=== PATIENT | female | born 1980 | race American Indian/Alaskan Native ===

== ENCOUNTER 2019-01-30 21:35 | Emergency (ER) | payer MEDICAID, OTHER ==
[2019-01-30 22:15] VITALS: BP 117/74
--- NOTE | 2019-01-30 22:16 | Emergency Department Report ---
Blank Doc - Documentation Documentation: pt presents with suprapubic pain that began today also has lower back pain no n/V +dark urine, frequency no fever PMHx herpes LNMP: hasnt had in two years due to normal BM today non smoker non drinker no drug use
[2019-01-30 23:15] LABS: Bilirubin,Urine NEG (Negative); Blood,Urine NEG (Negative); Color,Urine Yellow (Yellow); Mucus,Urine FEW /HPF; Protein,Urine <15 mg/dL mg/dL (Negative); Urobilinogen,Urine < 2.0 mg/dL (<2.0)
[2019-01-30 23:24] LABS: HCG Qualitative,Urine Negative (Negative)
[2019-01-31] MEDS ORDERED: TYLENOL PO ONE (03:19)
[2019-01-31] MEDS ORDERED: DELTASONE PO ONE (03:19)
[2019-01-31] MEDS ORDERED: IBUPROFEN PO ONE (03:19)
--- NOTE | 2019-01-31 03:31 | Emergency Department Report ---
ED Back Pain/Injury HPI - General Chief Complaint: Back Pain/Injury Stated Complaint: BACK/PELVIC PAIN Time Seen by Provider: 01/30/19 22:13 Source: patient Limitations: No Limitations - History of Present Illness Initial Comments: The patient is a 38-year-old female with no past medical history who presents to the ED with complaint of persistent nontraumatic low back pain for the last 2 days. Patient states that she woke up with low back pain and the patient has been persistent, especially worse with any movement or when she lays down and starts to walk. Patient denies dysuria, urinary frequency and urgency, fever, chills, nausea, vomiting, abdominal pain, dizziness, headache, history of lifting, traumatic injury, fall, numbness and tingling or weakness of lower extremities bilaterally, saddle paresthesia, urinary or bowel incontinence. MD Complaint: back pain -: Sudden, days(s) (2) Similar Symptoms Previously: Yes Place: home Radiation: none Severity: severe Severity scale (0 -10): 7 Quality: sharp, aching Consistency: constant Improves With: none Worsens With: movement, walking Context: turning/twisting, bending Associated Symptoms: denies other symptoms, difficulty walking. denies: confusion, weakness, numbness, cough, difficulty urinating, diaphoresis, incontinence, constipation, abdominal pain, loss of appetite, nausea/vomiting, rash, syncope, other - Related Data Previous Rx's Medication Instructions Recorded Last Taken Type Ibuprofen [Motrin 800 MG tab] 800 mg PO TID PRN #30 tablet 03/01/18 Unknown Rx Lidocain2.5%/Prilocai2.5% [Emla] 5 gm TP ONCE #1 tube 03/01/18 Unknown Rx oxyCODONE /ACETAMINOPHEN [Percocet 1 - 2 tab PO Q4HR PRN #30 tablet 03/01/18 Unknown Rx 5/325 mg] Docusate Sodium [Colace] 100 mg PO DAILY #30 capsule 03/02/18 Unknown Rx Ferrous Sulfate [Feosol 325 MG tab] 325 mg PO BID #90 tablet 03/02/18 Unknown Rx Acetaminophen/Codeine [Tylenol 1 tab PO Q6H PRN #12 tab 01/31/19 Unknown Rx /Codeine # 3 tab] Cyclobenzaprine [Flexeril] 10 mg PO Q8H PRN #18 tablet 01/31/19 Unknown Rx Naproxen [Naprosyn] 500 mg PO Q12H PRN #20 tablet 01/31/19 Unknown Rx predniSONE [Deltasone] 60 mg PO QDAY #15 tab 01/31/19 Unknown Rx Allergies Allergy/AdvReac Type Severity Reaction Status Date / Time No Known Allergies Allergy Unverified 03/01/18 05:44 ED Review of Systems ROS: Stated complaint: BACK/PELVIC PAIN Other details as noted in HPI Comment: All other systems reviewed and negative Constitutional: see HPI. denies: chills, fever Eyes: denies: eye pain, eye discharge, vision change ENT: as per HPI. denies: ear pain, throat pain Respiratory: see HPI. denies: cough, shortness of breath, wheezing Cardiovascular: as per HPI. denies: chest pain, palpitations Endocrine: no symptoms reported. denies: excessive sweating, intolerance to cold Gastrointestinal: as per HPI. denies: abdominal pain, nausea, diarrhea Genitourinary: as per HPI. denies: urgency, dysuria, discharge Musculoskeletal: back pain (lower back pain), arthralgia. denies: joint swelling Skin: as per HPI. denies: rash, lesions Neurological: as per HPI. denies: headache, weakness, numbness, paresthesias, confusion, abnormal gait, vertigo Psychiatric: as per HPI. denies: anxiety, depression Hematological/Lymphatic: as per HPI. denies: easy bleeding, easy bruising ED Past Medical Hx - Past Medical History Hx Hypertension: No Hx Diabetes: No Hx Deep Vein Thrombosis: No Hx Renal Disease: No Hx Sickle Cell Disease: Yes (SS trait) Hx Seizures: No Hx Asthma: No Hx HIV: No - Surgical History Past Surgical History?: No - Social History Smoking Status: Former Smoker Substance Use Type: Marijuana - Medications Home Medications: Home Medications Medication Instructions Recorded Confirmed Last Taken Type Ibuprofen [Motrin 800 MG tab] 800 mg PO TID PRN #30 tablet 03/01/18 Unknown Rx Lidocain2.5%/Prilocai2.5% [Emla] 5 gm TP ONCE #1 tube 03/01/18 Unknown Rx oxyCODONE /ACETAMINOPHEN [Percocet 1 - 2 tab PO Q4HR PRN #30 tablet 03/01/18 Unknown Rx 5/325 mg] Docusate Sodium [Colace] 100 mg PO DAILY #30 capsule 03/02/18 Unknown Rx Ferrous Sulfate [Feosol 325 MG tab] 325 mg PO BID #90 tablet 03/02/18 Unknown Rx Acetaminophen/Codeine [Tylenol 1 tab PO Q6H PRN #12 tab 01/31/19 Unknown Rx /Codeine # 3 tab] Cyclobenzaprine [Flexeril] 10 mg PO Q8H PRN #18 tablet 01/31/19 Unknown Rx Naproxen [Naprosyn] 500 mg PO Q12H PRN #20 tablet 01/31/19 Unknown Rx predniSONE [Deltasone] 60 mg PO QDAY #15 tab 01/31/19 Unknown Rx ED Physical Exam - General Limitations: No Limitations General appearance: alert, in no apparent distress - Head Head exam: Present: atraumatic, normocephalic, normal inspection - Eye Eye exam: Present: normal appearance, PERRL, EOMI. Absent: scleral icterus, conjunctival injection, nystagmus Pupils: Present: normal accommodation - ENT ENT exam: Present: normal exam, mucous membranes moist, TM's normal bilaterally, normal external ear exam - Neck Neck exam: Present: normal inspection, full ROM. Absent: tenderness, lymphadenopathy, thyromegaly - Respiratory Respiratory exam: Present: normal lung sounds bilaterally. Absent: respiratory distress, wheezes, rales, rhonchi, chest wall tenderness, accessory muscle use, decreased breath sounds, prolonged expiratory - Cardiovascular Cardiovascular Exam: Present: regular rate, normal rhythm, normal heart sounds. Absent: systolic murmur, diastolic murmur, rubs, gallop - GI/Abdominal GI/Abdominal exam: Present: soft, normal bowel sounds, organomegaly. Absent: hyperactive bowel sounds, hypoactive bowel sounds - Rectal Rectal exam: Present: deferred - Extremities Exam Extremities exam: Present: normal inspection, full ROM, normal capillary refill - Back Exam Back exam: Present: normal inspection, tenderness (palpable lumbosacral paraspinal muscular skeletal tenderness), muscle spasm, paraspinal tenderness. Absent: CVA tenderness (R), CVA tenderness (L), vertebral tenderness - Neurological Exam Neurological exam: Present: alert, oriented X3, CN II-XII intact, normal gait - Psychiatric Psychiatric exam: Present: normal affect, normal mood - Skin Skin exam: Present: warm, dry, intact, normal color. Absent: rash ED Course Vital Signs 01/30/19 22:14 Temperature 97.5 F L Pulse Rate 72 Respiratory 18 Rate Blood Pressure 117/74 [Right] O2 Sat by Pulse 100 Oximetry - Reevaluation(s) Reevaluation #1: 01/31/19 03:34 Patient is alert and oriented 3 and not in distress, with normal vital signs. Urinalysis unremarkable. Patient was treated for pain in the ED. Patient was discharged home on pain medications and muscle relaxants and advised to follow up with her primary care physician in 5-7 days for reevaluation or return to the ED immediately if symptoms get worse. ED Medical Decision Making - Medical Decision Making Patient is alert and oriented 3 and not in distress, with normal vital signs. Urinalysis unremarkable. Patient was treated for pain in the ED. patient's symptoms are likely due to muscle spasm of lower back. Patient was discharged home on pain medications and muscle relaxants and advised to follow up with her primary care physician in 5-7 days for reevaluation or return to the ED immediately if symptoms get worse. - Differential Diagnosis acute lower back pain; Muscle spasm of lower back, acute UTI Critical care attestation.: If time is entered above; I have spent that time in minutes in the direct care of this critically ill patient, excluding procedure time. ED Disposition Clinical Impression: Spasm of muscle of lower back Acute low back pain Qualifiers: Back pain laterality: unspecified Sciatica presence: without sciatica Qualified Code(s): M54.5 - Low back pain Disposition: DC-01 TO HOME OR SELFCARE Is pt being admited?: No Does the pt Need Aspirin: No Condition: Stable Instructions: Muscle Spasm (ED), Acute Low Back Pain (ED) Additional Instructions: Take medications with food, drink plenty of fluids and follow-up with your primary care physician in 7-10 days for reevaluation. Return to the ED immediately if symptoms get worse. Prescriptions: predniSONE [Deltasone] 60 mg PO QDAY #15 tab Cyclobenzaprine [Flexeril] 10 mg PO Q8H PRN #18 tablet PRN Reason: Muscle Spasm Naproxen [Naprosyn] 500 mg PO Q12H PRN #20 tablet PRN Reason: Pain , Severe (7-10) Acetaminophen/Codeine [Tylenol /Codeine # 3 tab] 1 tab PO Q6H PRN #12 tab PRN Reason: Pain , Severe (7-10) Referrals: SUE MYERS MD [Primary Care Provider] - 3-5 Days Time of Disposition: 03:31 Print Language: SPANISH
== END 2019-01-31 03:55 | disposition home or self-care (01) ==
LOC: ED 21:35
DX: M62.830 Muscle spasm of back (principal); F12.10 Cannabis abuse, uncomplicated; Z87.891 Personal history of nicotine dependence; D57.3 Sickle-cell trait; Z79.899 Other long term (current) drug therapy
CPT/HCPCS: 81001; 81025; 99283; J7512

== ENCOUNTER 2019-04-06 18:58 | Emergency (ER) | payer OTHER ==
--- NOTE | 2019-04-06 19:36 | Event Note ---
ED Screening Note Date of service: 04/06/19 Time: 19:34 ED Screening Note: This is a 38 y.o. F. that presents to the ER with a dental abscess and left sided facial swelling for 3 months. This initial assessment/diagnostic orders/clinical plan/treatment(s) is/are subject to change based on patients health status, clinical progression and re- assessment by fellow clinical providers in the ED. Further treatment and workup at subsequent clinical providers discretion. Patient/guardian urged not to elope from the ED as their condition may be serious if not clinically assessed and managed. Initial orders include: ACC for further evaluation.
[2019-04-06] MEDS ORDERED: TORADOL IV ONE (20:22)
[2019-04-06] MEDS ORDERED: CLEOCIN 900 MG/50 mL 900 MG/50 ML BAG IV ONE (20:22)
[2019-04-06] MEDS ORDERED: ZOFRAN IV ONE (20:22)
[2019-04-06] MEDS ORDERED: DECADRON IV ONE (20:23)
[2019-04-06 20:59] LABS: Basophils % (Auto) 0.3 % (0.0-1.8); Eosinophils # (Auto) 0.1 K/mm3 (0.0-0.4); Eosinophils % (Auto) 0.7 % (0.0-4.3); Hematocrit 34.7 % (30.3-42.9); Hemoglobin 11.6 gm/dl (10.1-14.3); Lymphocytes # (Auto) 1.6 K/mm3 (1.2-5.4); Lymphocytes % (Auto) 13.9 % (13.4-35.0); Mean Corpuscular HGB Conc 33 % (30-34); Mean Corpuscular Volume 84 fl (79-97); Monocytes # (Auto) 0.8 K/mm3 (0.0-0.8); Monocytes % (Auto) 6.7 % (0.0-7.3); Platelet Count 293 K/mm3 (140-440); Red Blood Count 4.15 M/mm3 (3.65-5.03); Red Cell Distribution Width 14.6 % (13.2-15.2)
[2019-04-06 21:26] LABS: Alanine Aminotransferase 12 units/L (7-56); Albumin 4.4 g/dL (3.9-5); BUN/Creatinine Ratio 16; Blood Urea Nitrogen 11 mg/dL (7-17); Calcium 9.8 mg/dL (8.4-10.2); Hemolysis Index 0
[2019-04-06 21:45] LABS: Bilirubin,Urine NEG (Negative); Blood,Urine NEG (Negative); Color,Urine Straw (Yellow); Mucus,Urine FEW /HPF; Protein,Urine <15 mg/dL mg/dL (Negative); Urobilinogen,Urine < 2.0 mg/dL (<2.0); WBC,Urine < 1.0 /HPF (0.0-6.0)
--- NOTE | 2019-04-06 23:16 | Cat Scan Report ---
CT maxillofacial without contrast INDICATION : FACIAL ABSCESS VS GUM DISEASE. Acute generalized left facial pain TECHNIQUE: Axial imaging performed through the face with reconstructed images also reviewed. All CT scans at this location are performed using CT dose reduction for ALARA by means of automated exposur e control. COMPARISON: None FINDINGS: There is considerable streak artifact from multiple dental fillings which limits evaluatio n. There is mild inflammatory stranding over the soft tissues of the left mandible and left maxilla. The re is cortical breakthrough involving tooth #12 on the left in the maxilla. There is a small overlyin g collection measuring 5 mm x 11 mm on image #109 of series #7. There is mild mucosal thickening in the maxillary sinuses with remaining sinuses and mastoid air cell s clear. The orbits are normal. IMPRESSION: Small periapical abscess as above. Signer Name: Royer Gorman MD Signed: 04/06/2019 11:11 PM Workstation Name: [id number]
--- NOTE | 2019-04-06 23:30 | Emergency Department Report ---
ED General Adult HPI - General Chief complaint: Skin/Abscess/Foreign Body Stated complaint: FACIAL SWELLING Time Seen by Provider: 04/06/19 19:33 Source: patient Mode of arrival: Ambulatory Limitations: No Limitations - History of Present Illness Initial comments: Patient is a 38-year-old female with a history of chronic dental abscesses who presents with a ED with complaint of painful swollen left maxillary premolar and molar toothaches with swollen gums for the last 6 months intermittently, and let facial swelling for the last 12 hours. Patient denies dizziness, headache, chest pain, shortness of breath, nausea, vomiting, sore throat, fever, chills, dizziness, traumatic injury, hearing loss, neck pain, abdominal pain or change in vision. MD Complaint: left facial swelling; left upper toothache; swollen gums -: Gradual, month(s) (3) Location: face, mouth Radiation: non-radiation Severity scale (0 -10): 5 Quality: aching, sharp, constant Consistency: constant Improves with: none Worsens with: eating Associated Symptoms: denies other symptoms. denies: confusion, chest pain, cough, diaphoresis, fever/chills, headaches, loss of appetite, nausea/vomiting, rash, shortness of breath, syncope - Related Data Previous Rx's Medication Instructions Recorded Last Taken Type Ibuprofen [Motrin 800 MG tab] 800 mg PO TID PRN #30 tablet 03/01/18 Unknown Rx Lidocain2.5%/Prilocai2.5% [Emla] 5 gm TP ONCE #1 tube 03/01/18 Unknown Rx oxyCODONE /ACETAMINOPHEN [Percocet 1 - 2 tab PO Q4HR PRN #30 tablet 03/01/18 Unknown Rx 5/325 mg] Docusate Sodium [Colace] 100 mg PO DAILY #30 capsule 03/02/18 Unknown Rx Ferrous Sulfate [Feosol 325 MG tab] 325 mg PO BID #90 tablet 03/02/18 Unknown Rx Acetaminophen/Codeine [Tylenol 1 tab PO Q6H PRN #12 tab 01/31/19 Unknown Rx /Codeine # 3 tab] Cyclobenzaprine [Flexeril] 10 mg PO Q8H PRN #18 tablet 01/31/19 Unknown Rx Naproxen [Naprosyn] 500 mg PO Q12H PRN #20 tablet 06/06/19 Unknown Rx predniSONE [Deltasone] 60 mg PO QDAY #15 tab 01/31/19 Unknown Rx Acetaminophen/Codeine [Tylenol 1 tab PO Q6H PRN #15 tab 04/06/19 Unknown Rx /Codeine # 3 tab] Clindamycin [Clindamycin CAP] 300 mg PO Q8HR #60 capsule 04/06/19 Unknown Rx Ketorolac [Toradol] 10 mg PO Q6H PRN #20 tablet 04/06/19 Unknown Rx Ondansetron [Zofran Odt] 4 mg PO Q6HR PRN #15 tab.rapdis 04/06/19 Unknown Rx Penicillin V Potassium 500 mg PO Q6H #40 tablet 04/06/19 Unknown Rx Allergies Allergy/AdvReac Type Severity Reaction Status Date / Time No Known Allergies Allergy Unverified 03/01/18 05:44 ED Review of Systems ROS: Stated complaint: FACIAL SWELLING Other details as noted in HPI Constitutional: denies: chills, fever Eyes: denies: eye pain, eye discharge, vision change ENT: dental pain, other (left facial swelling and pain; swollen gums). denies: ear pain, throat pain Respiratory: denies: cough, shortness of breath, wheezing Cardiovascular: denies: chest pain, palpitations Endocrine: no symptoms reported Gastrointestinal: denies: abdominal pain, nausea, diarrhea Genitourinary: denies: urgency, dysuria, discharge Musculoskeletal: denies: back pain, joint swelling, arthralgia Skin: denies: rash, lesions Neurological: denies: headache, weakness, paresthesias Psychiatric: denies: anxiety, depression Hematological/Lymphatic: denies: easy bleeding, easy bruising ED Past Medical Hx - Past Medical History Previous Medical History?: Yes Hx Hypertension: No Hx Diabetes: No Hx Deep Vein Thrombosis: No Hx Renal Disease: No Hx Sickle Cell Disease: Yes (SS trait) Hx Seizures: No Hx Asthma: No Hx HIV: No - Social History Smoking Status: Former Smoker Substance Use Type: None - Medications Home Medications: Home Medications Medication Instructions Recorded Confirmed Last Taken Type Ibuprofen [Motrin 800 MG tab] 800 mg PO TID PRN #30 tablet 03/01/18 Unknown Rx Lidocain2.5%/Prilocai2.5% [Emla] 5 gm TP ONCE #1 tube 03/01/18 Unknown Rx oxyCODONE /ACETAMINOPHEN [Percocet 1 - 2 tab PO Q4HR PRN #30 tablet 03/01/18 Unknown Rx 5/325 mg] Docusate Sodium [Colace] 100 mg PO DAILY #30 capsule 03/02/18 Unknown Rx Ferrous Sulfate [Feosol 325 MG tab] 325 mg PO BID #90 tablet 03/02/18 Unknown Rx Acetaminophen/Codeine [Tylenol 1 tab PO Q6H PRN #12 tab 01/31/19 Unknown Rx /Codeine # 3 tab] Cyclobenzaprine [Flexeril] 10 mg PO Q8H PRN #18 tablet 01/31/19 Unknown Rx Naproxen [Naprosyn] 500 mg PO Q12H PRN #20 tablet 01/31/19 Unknown Rx predniSONE [Deltasone] 60 mg PO QDAY #15 tab 01/31/19 Unknown Rx Acetaminophen/Codeine [Tylenol 1 tab PO Q6H PRN #15 tab 04/06/19 Unknown Rx /Codeine # 3 tab] Clindamycin [Clindamycin CAP] 300 mg PO Q8HR #60 capsule 04/06/19 Unknown Rx Ketorolac [Toradol] 10 mg PO Q6H PRN #20 tablet 04/06/19 Unknown Rx Ondansetron [Zofran Odt] 4 mg PO Q6HR PRN #15 tab.rapdis 04/06/19 Unknown Rx Penicillin V Potassium 500 mg PO Q6H #40 tablet 04/06/19 Unknown Rx ED Physical Exam - General Limitations: No Limitations General appearance: alert, in no apparent distress - Head Head exam: Present: atraumatic, normocephalic, normal inspection - Eye Eye exam: Present: normal appearance, PERRL, EOMI Pupils: Present: normal accommodation - ENT ENT exam: Present: mucous membranes moist, TM's normal bilaterally, normal external ear exam, other (Swollen severely tender lef maxillary gums; swollen tender left facial maxilalry area) - Neck Neck exam: Present: normal inspection, full ROM, lymphadenopathy. Absent: tenderness, meningismus, thyromegaly - Respiratory Respiratory exam: Present: normal lung sounds bilaterally. Absent: respiratory distress, wheezes, rhonchi, stridor, chest wall tenderness - Cardiovascular Cardiovascular Exam: Present: normal rhythm, tachycardia, normal heart sounds. Absent: systolic murmur, diastolic murmur, rubs, gallop - GI/Abdominal GI/Abdominal exam: Present: soft, normal bowel sounds. Absent: tenderness, guarding, rebound, hyperactive bowel sounds, hypoactive bowel sounds, mass - Rectal Rectal exam: Present: deferred - Extremities Exam Extremities exam: Present: normal inspection, full ROM, normal capillary refill - Back Exam Back exam: Present: normal inspection, full ROM. Absent: CVA tenderness (L), muscle spasm, paraspinal tenderness, vertebral tenderness - Neurological Exam Neurological exam: Present: alert, oriented X3, CN II-XII intact, normal gait, reflexes normal - Psychiatric Psychiatric exam: Present: normal affect, normal mood - Skin Skin exam: Present: warm, dry, intact, normal color. Absent: rash ED Course Vital Signs 04/06/19 04/06/19 04/06/19 19:33 21:00 21:30 Temperature 99.6 F Pulse Rate 112 H Respiratory 18 16 16 Rate Blood Pressure 143/93 O2 Sat by Pulse 97 Oximetry - Reevaluation(s) Reevaluation #1: 04/07/19 00:03 This is a 38-year-old female who presents with the ED with complaint of left facial swelling, severe left maxillary gum swelling and pain with dental pain. Patient is alert and oriented 3 and is not in distress but appears to be in pain, and is tachycardic in triage. Labs were drawn and show mild leukocytosis of 11,200. There is lab test results are unremarkable. The facial CT scan with contrast shows a considerable streak artifact from multiple dental fillings which limits evaluation. There is mild inflammatory stranding over the soft tissues of the left mandible and left maxilla. There is cortical breakthrough involving tooth #12 on the left in the maxilla. There is a small overlying collection measuring 5 mm x 11 mm. There is mild mucosal thickening in the maxillary sinuses with remaining sinuses and mastoid air cells clear. The orbits are normal. The patient was treated in the ED with clindamycin 900 mg IV 1, pain medications and steroids and be sent home on antibiotics and pain medications. Patient is advised to follow-up with a dentist in 5-7 days for reevaluation on for the treatment, or return to the ED immediately if symptoms get worse. ED Medical Decision Making - Lab Data Result diagrams: 04/06/19 20:26 04/06/19 20:26 - Radiology Data Radiology results: report reviewed, image reviewed Findings [facility] [address] [place] [address] Cat Scan Report Signed Patient: YEIMI HAM MR#: [id number] : 1980 Acct:[id number] Age/Sex: 38 / F ADM Date: 04/06/19 Loc: ED Attending Dr: Ordering Physician: ALKA CRAWFORD Date of Service: 04/06/19 Procedure(s): CT facial bones w con Accession Number(s): [id number] cc: ALKA CRAWFORD CT maxillofacial without contrast INDICATION : FACIAL ABSCESS VS GUM DISEASE. Acute generalized left facial pain TECHNIQUE: Axial imaging performed through the face with reconstructed images also reviewed. All CT scans at this location are performed using CT dose reduction for ALARA by means of automated exposure control. COMPARISON: None FINDINGS: There is considerable streak artifact from multiple dental fillings w hich limits evaluation. There is mild inflammatory stranding over the soft tissues of the left mandible and left maxilla. There is cortical breakthrough involving tooth #12 on the left in the maxilla. There is a small overlying collection measuring 5 mm x 11 mm on image #109 of series #7. There is mild mucosal thickening in the maxillary sinuses with remaining sinuses and mastoid air cells clear. The orbits are normal. IMPRESSION: Small periapical abscess as above. Signer Name: Royer Gorman MD Signed: 04/06/2019 11:11 PM Workstation Name: [id number] Transcribed By: JW Dictated By: Royer Gorman MD Electronically Authenticated By: Royer Gorman MD Signed Date/Time: 04/06/19 2311 - Medical Decision Making This is a 38-year-old female who presents with the ED with complaint of left facial swelling, severe left maxillary gum swelling and pain with dental pain. Patient is alert and oriented 3 and is not in distress but appears to be in pain, and is tachycardic in triage. Labs were drawn and show mild leukocytosis of 11,200. There is lab test results are unremarkable. The facial CT scan with contrast shows a considerable streak artifact from multiple dental fillings which limits evaluation. There is mild inflammatory stranding over the soft tissues of the left mandible and left maxilla. There is cortical breakthrough involving tooth #12 on the left in the maxilla. There is a small overlying collection measuring 5 mm x 11 mm. There is mild mucosal thickening in the maxillary sinuses with remaining sinuses and mastoid air cells clear. The orbits are normal. The patient was treated in the ED with clindamycin 900 mg IV 1, pain medications and steroids and be sent home on antibiotics and pain medications. Patient is advised to follow-up with a dentist in 5-7 days for reevaluation on for the treatment, or return to the ED immediately if symptoms get worse. - Differential Diagnosis chronic sinusitis; chronic gingivitis; dental abscess; facial cellulitis Critical care attestation.: If time is entered above; I have spent that time in minutes in the direct care of this critically ill patient, excluding procedure time. ED Disposition Clinical Impression: Chronic gingivitis, Dental abscess Chronic sinusitis Qualifiers: Sinusitis location: maxillary Qualified Code(s): J32.0 - Chronic maxillary sinusitis Disposition: TO HOME OR SELFCARE Is pt being admited?: No Does the pt Need Aspirin: No Condition: Stable Instructions: Dental Abscess (ED), Gingivitis (ED), Sinusitis (ED) Additional Instructions: Take medications with food, drink plenty of fluids and follow-up with your dentist in 7-10 days for reevaluation. Return to the ED immediately if symptoms get worse. Prescriptions: Clindamycin [Clindamycin CAP] 300 mg PO Q8HR #60 capsule Penicillin V Potassium 500 mg PO Q6H #40 tablet Ketorolac [Toradol] 10 mg PO Q6H PRN #20 tablet PRN Reason: Pain Acetaminophen/Codeine [Tylenol /Codeine # 3 tab] 1 tab PO Q6H PRN #15 tab PRN Reason: Pain , Severe (7-10) Ondansetron [Zofran Odt] 4 mg PO Q6HR PRN #15 tab.rapdis PRN Reason: Nausea Referrals: SUE MYERS MD [Primary Care Provider] - 3-5 Days Time of Disposition: 23:26 Print Language: [place]
[2019-04-07 00:38] VITALS: BP 114/72
== END 2019-04-07 00:40 | disposition home or self-care (01) ==
LOC: ED 18:58
DX: K05.10 Chronic gingivitis, plaque induced (principal); J32.9 Chronic sinusitis, unspecified; Z87.891 Personal history of nicotine dependence
CPT/HCPCS: 36415; 70487; 80053; 81001; 84703; 85025; 96365; 96375; 99284; J1100; J1885; J2405; Q9967